=== PATIENT | female | born 1995 | race African-American/Black ===

== ENCOUNTER 2021-06-27 08:33 | Emergency (ER) | payer OTHER, SELFPAY ==
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
[2021-06-27 08:33] VITALS: BP 126/77; PULSE 80; RESP 18; TEMP 36.5; O2SAT 99
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
--- NOTE | 2021-06-27 10:38 | PC.NURSE ---
Patient arrives to ED with c-collar in place. Patient removed c-collar and is refusing to place it back on when instructed by clinical staff. Patient remains in bed.
--- NOTE | 2021-06-27 11:29 | PC.NURSE ---
This nurse attempted to administer pt's ibuprofen. Pt stated that she would like to leave and that she does not want her discharge paperwork. Patient refused ibuprofen dose.
== END 2021-06-27 11:31 | disposition home or self-care (01) ==
PROVIDERS: Emergency Provider Emergency Medicine
DX: S09.90XA Unspecified injury of head, initial encounter (principal); S16.1XXA Strain of muscle, fascia and tendon at neck level, initial encounter; S29.012A Strain of muscle and tendon of back wall of thorax, initial encounter; V43.52XA Car driver injured in collision with other type car in traffic accident, initial encounter
CPT/HCPCS: 70450; 70486; 72072; 72125; 73552; 99284